=== PATIENT | male | born 1960 | race Caucasian/White ===

== ENCOUNTER 2023-06-22 00:46 | Emergency (ER) | payer MEDICAID ==
[~2023-06-22] VITALS: Ht 185.4 cm; Wt 95.3 kg
[2023-06-22] MEDS ORDERED: IPRATROPIUM BROM 0.5 MG/2.5 ML VIAL.NEB (ATROVENT) INH ONE ×2 (00:49→01:00)
[2023-06-22] MEDS ORDERED: ALBUTEROL SULFATE 0.083% 2.5 MG/3 ML VIAL.NEB INH ONE ×2 (00:49→01:00)
[2023-06-22 00:52] VITALS: BP_SYST 185; PULSE 120; RESP 20; TEMP 97.6; O2SAT 98
[2023-06-22 00:56] VITALS: BP_SYST 185; PULSE 117; RESP 40; O2SAT 96
[2023-06-22] MEDS ORDERED: methylPREDNISolone SOD SUCC/PF 62.5 MG/ML VIAL IVP ONE (01:00)
[2023-06-22] MEDS ORDERED: MAGNESIUM SULFATE 50 ML IV ONE (01:00)
[2023-06-22 03:23] LABS: COVID19 ANTIGEN SOFIA FIA NEGATIVE (NEGATIVE)
[2023-06-22 03:28] LABS: INFLUENZA TYPE A Negative (NEGATIVE); INFLUENZA TYPE B NEGATIVE (NEGATIVE)
== END 2023-06-22 01:54 | disposition left against medical advice (07) ==
LOC: SED 00:46
DX: J45.901 Unspecified asthma with (acute) exacerbation (principal); J96.01 Acute respiratory failure with hypoxia; R07.9 Chest pain, unspecified; F17.200 Nicotine dependence, unspecified, uncomplicated; Z79.899 Other long term (current) drug therapy; Z20.822 Contact with and (suspected) exposure to COVID-19
CPT/HCPCS: 99291; J2930; J3475